=== PATIENT | female | born 1965 | race Caucasian/White ===

== ENCOUNTER 2017-01-13 21:02 | Emergency (ER) | payer SELFPAY ==
[~2017-01-13] VITALS: Ht 162.6 cm; Wt 57.7 kg
[2017-01-13 21:38] VITALS: BP 147/90
--- NOTE | 2017-01-13 22:37 | NUR ---
PATIENT LEFT WITHOUT BEING SEEN BY DR. ROMERO. NO FURTHER CARE PROVIDED FOR PATIENT.
== END 2017-01-13 22:37 | disposition left against medical advice (07) ==
LOC: MED 21:02
DX: F41.9 Anxiety disorder, unspecified (principal); Z53.21 Procedure and treatment not carried out due to patient leaving prior to being seen by health care provider

== ENCOUNTER 2017-01-15 09:25 | Emergency (ER) | payer OTHER ==
[~2017-01-15] VITALS: Ht 154.9 cm; Wt 59.0 kg
[2017-01-15 09:29] VITALS: BP 157/91
[2017-01-15] MEDS ORDERED: NACL 0.9% 1,000 ML IV ONE (09:31)
[2017-01-15] MEDS ORDERED: MULTIVITAMIN-12 10 ML, THIAMINE 100 MG, MAGNESIUM SULFATE 50% 2,000 MG, FOLIC ACID 5 MG... IV ONE ×5 (09:31)
--- NOTE | 2017-01-15 09:37 | NUR ---
PT TAKEN TO BED 4.
--- NOTE | 2017-01-15 09:39 | NUR ---
Patient being evaluated by Dr. May at bedside.
[2017-01-15 09:52] LABS: HEMATOCRIT 32.1 % (36-48); HEMOGLOBIN 9.3 g/dL (12.0-16.0); MEAN CORPUSCULAR HEMOGLOBIN 18 pg (27-31); MEAN CORPUSCULAR HGB CONC 29 g/dL (33-37); MEAN CORPUSCULAR VOLUME 63 fL (80-94); PLATELET COUNT (AUTO) 173 K/uL (140-450); RED BLOOD CELL COUNT(AUTO) 5.09 MIL/uL (4.20-5.40); RED CELL DISTRIBUTION WIDTH 21.3 % (11.6-13.7); WHITE BLOOD COUNT (AUTO) 4.2 K/uL (4.8-10.8)
[2017-01-15 10:10] LABS: ANION GAP 13.9 (8-16); CALCIUM 8.3 mg/dL (8.5-10.1); CARBON DIOXIDE 24.8 mmol/L (21-32); CREATININE 0.6 mg/dL (0.6-1.3); POTASSIUM 3.7 mmol/L (3.5-5.1)
[2017-01-15 10:14] LABS: PARTIAL THROMBOPLASTIN TIME 22.1 secs (22-35.6); PROTHROMBIN TIME 9.9 secs (10.8-13.4)
[2017-01-15 10:17] LABS: ALBUMIN 3.8 g/dL (3.4-5.0); BILIRUBIN,DIRECT 0.1 mg/dL (0.0-0.3); TOTAL BILIRUBIN 0.3 mg/dL (0.0-1.0); TOTAL PROTEIN, SERUM 7.4 g/dL (6.4-8.2)
[2017-01-15 10:18] LABS: ANISOCYTOSIS 1+; BAND % (MANUAL) 2 % (0-8); HYPOCHROMASIA 1+; LYMPHOCYTES % (MANUAL) 15 % (20-46); MONOCYTES % (MANUAL) 3 % (5-12); NEUTROPHILS % (MANUAL) 80 (43-65); OVALOCYTES 1+; POIKILOCYTOSIS 1+; TEAR DROP CELLS 1+
--- NOTE | 2017-01-15 10:38 | NUR ---
51 BIBA FROM FRIEND'S HOUSE FOR EVALUATION OF ALTERED MENTAL STATUS. PT UNABLE TO ANSWER QUESTIONS APPROPRIATELY. COMPLIANCE NURSE STATES PT WAS AT HOME AND BEGAN YELLING INCOHERENTLY AND TAKING OFF HER CLOTHES, FRIEND PROCEEDED TO CALL 911. QUESTIONABLE PSYCHIATRIC HX PER FRIEND.PT DENIES SUICIDAL IDEATION. SKIN IS PINK/WARM/DRY; AAOX4 WITH EVEN AND STEADY GAIT; LUNGS CLEAR BL; HR EVEN AND REGULAR; PATIENT STATES PAIN OF 0/10 AT THIS TIME; VSS; PATIENT POSITIONED FOR COMFORT; HOB ELEVATED; BEDRAILS UP X2; BED DOWN. ER MD MADE AWARE OF PT STATUS.
--- NOTE | 2017-01-15 11:20 | NUR ---
PT MOVED TO BED 7.
[2017-01-15] MEDS ORDERED: LORazepam 2 MG/ML VIAL IVP ONE (12:45)
--- NOTE | 2017-01-15 12:52 | NUR ---
ATIVAN 2MG IV PER ER MD DR WEN D/T PT'S AGITATED .
--- NOTE | 2017-01-15 13:25 | NUR ---
[facility] called to assess the patient for a possible [phone]. Security is at bedside. Pt is crying, trying to leave and trying to pull out her IV.
--- NOTE | 2017-01-15 14:11 | NUR ---
[facility] [employer] at bedside.
--- NOTE | 2017-01-15 14:15 | NUR ---
PT COORPERATES & CALM .
[2017-01-15 14:23] LABS: APPEARANCE,URINE CLEAR (CLEAR); BILIRUBIN,URINE NEGATIVE (NEGATIVE); BLOOD, URINE NEGATIVE (NEGATIVE); LEUKOCYTE ESTERASE ,URINE NEGATIVE (NEGATIVE); NITRITE, URINE NEGATIVE (NEGATIVE); PROTEIN,URINE NEGATIVE (NEGATIVE); UGLUCOSE NEGATIVE (NEGATIVE); UROBILINOGEN,URINE 0.2 EU/dL (0.2 - 1)
[2017-01-15 14:29] LABS: AMPHETAMINE, URINE NEGATIVE ng/ml (NEG <=1000); BARBITURATE, URINE NEGATIVE ng/ml (NEG <=200); BENZODIAZEPINE, URINE NEGATIVE ng/mL (NEG <=200); CANNABINOID, URINE NEGATIVE ng/mL (NEG <=50); COCAINE, URINE NEGATIVE ng/mL (NEG <=300); OPIATE, URINE NEGATIVE ng/mL (NEG <=2000); PHENCYCLIDINE SCREEN,URINE NEGATIVE ng/mL (NEG <=25)
[2017-01-15 14:32] VITALS: BP 116/68
--- NOTE | 2017-01-15 14:32 | NUR ---
Patient discharged with v/s stable. Written and verbal after care instructions given and explained. Patient verbalized understanding. Ambulatory with steady gait. All questions addressed prior to discharge. Advised to follow up with PMD.
[2017-01-15 14:53] LABS: BACTERIA,URINE None Seen /HPF (None Seen); COLOR,URINE STRAW (YELLOW); RBC,URINE NONE SEEN /HPF (0-5); SQUAMOUS EPITHELIAL CELL,UR None Seen /LPF (0-3 (FEW)); WBC,URINE NONE SEEN /HPF (0-5)
== END 2017-01-15 14:32 | disposition home or self-care (01) ==
LOC: MED 09:25
DX: F23 Brief psychotic disorder (principal); F10.129 Alcohol abuse with intoxication, unspecified; F41.9 Anxiety disorder, unspecified; Z59.0 Homelessness
CPT/HCPCS: 36415; 80053; 80076; 80305; 81001; 85025; 85610; 85730; 96361; 96365; 96366; 96375; 99285; A9153; G0482; J2060; J3411; J3475; J3490; J7030